=== PATIENT | male | born 1990 | race Two or more races ===

== ENCOUNTER 2019-08-28 08:41 | Emergency (ER) | payer BC, OTHER ==
[~2019-08-28] VITALS: Ht 170.2 cm; Wt 100.0 kg
[2019-08-28] MEDS ORDERED: HYDR-3281 PO (08:53)
[2019-08-28 09:05] VITALS: BP 145/83
[2019-08-28] MEDS ORDERED: KETOROLAC 30MG/ML VIAL IM ONE (09:15)
== END 2019-08-28 09:56 | disposition home or self-care (01) ==
LOC: ER 08:41
DX: M65.271 Calcific tendinitis, right ankle and foot (principal)
CPT/HCPCS: 73610; 96372; 99283; J1885

== ENCOUNTER 2021-05-14 08:47 | Emergency (ER) | payer BC, MEDICAID, OTHER ==
[~2021-05-14] VITALS: Ht 177.8 cm; Wt 104.0 kg
[~2021-05-14 08:47] MED LIST: HYDR-4346 PO
[2021-05-14 08:57] VITALS: BP 136/83
[2021-05-14] MEDS ORDERED: PREDNISONE 20MG TABLET PO ONE (09:15)
[2021-05-14] MEDS ORDERED: COLCHICINE 0.6MG TABLET PO ONE (09:15)
[2021-05-14] MEDS ORDERED: INDOMETHACIN 25MG CAPSULE PO ONE (09:15)
[2021-05-14] MEDS ORDERED: COLC0.6C3 MT ×2 (10:02→14:29)
[2021-05-14] MEDS ORDERED: INDO-13 MT ×2 (10:02→14:29)
[2021-05-14] MEDS ORDERED: P20 MT ×2 (10:02→14:29)
== END 2021-05-14 10:57 | disposition home or self-care (01) ==
LOC: ER 08:47
DX: M10.9 Gout, unspecified (principal); I10 Essential (primary) hypertension
CPT/HCPCS: 73630; 99283

== ENCOUNTER 2021-07-08 09:45 | Emergency (ER) | payer SELFPAY ==
[~2021-07-08] VITALS: Ht 167.6 cm; Wt 104.0 kg
[~2021-07-08 09:45] MED LIST changes: +COLC0.6C3 MT; +INDO-13 MT; +P20 MT
[2021-07-08] MEDS ORDERED: KETOROLAC 60MG/2ML VIAL IM ONE (10:30)
[2021-07-08] MEDS ORDERED: PREDNISONE 20MG TABLET PO ONE (12:15)
[2021-07-08] MEDS ORDERED: P20 MT (12:41)
[2021-07-08] MEDS ORDERED: NAPR-681 MT (12:41)
[2021-07-08 13:24] VITALS: BP 129/73
== END 2021-07-08 13:26 | disposition home or self-care (01) ==
LOC: ER 09:45
DX: M25.571 Pain in right ankle and joints of right foot (principal); M10.9 Gout, unspecified
CPT/HCPCS: 29515; 73610; 96372; 99283; J1885; J7512

== ENCOUNTER 2021-09-17 00:29 | Emergency (ER) | payer MEDICAID ==
[~2021-09-17] VITALS: Ht 170.2 cm; Wt 110.0 kg
[~2021-09-17 00:29] MED LIST changes: +NAPR-681 MT
[2021-09-17 01:28] VITALS: BP 139/89
[2021-09-17] MEDS ORDERED: KETOROLAC 60MG/2ML VIAL IM ONE (02:00)
[2021-09-17] MEDS ORDERED: PREDNISONE 20MG TABLET PO ONE (02:00)
[2021-09-17] MEDS ORDERED: NAPR-681 MT (03:08)
[2021-09-17] MEDS ORDERED: P20 MT (03:08)
== END 2021-09-17 03:37 | disposition home or self-care (01) ==
LOC: ER 00:51
DX: M79.674 Pain in right toe(s) (principal); M10.9 Gout, unspecified
CPT/HCPCS: 96372; 99283; J1885; J7512

== ENCOUNTER 2022-04-15 10:25 | Emergency (ER) | payer MEDICAID ==
[~2022-04-15] VITALS: Ht 170.2 cm; Wt 109.0 kg
[2022-04-15] MEDS ORDERED: KETOROLAC 15MG/ML VIAL IM ONE (13:15)
[2022-04-15] MEDS ORDERED: IBUP-2030 MT (13:51)
[2022-04-15 14:39] VITALS: BP 126/77
== END 2022-04-15 14:41 | disposition home or self-care (01) ==
LOC: ER 10:25
DX: M25.571 Pain in right ankle and joints of right foot (principal); M10.9 Gout, unspecified
CPT/HCPCS: 73610; 96372; 99283; J1885

== ENCOUNTER 2022-08-25 16:27 | Emergency (ER) | payer MEDICAID ==
[~2022-08-25] VITALS: Ht 170.2 cm; Wt 113.0 kg
[~2022-08-25 16:27] MED LIST changes: +IBUP-2030 MT
[2022-08-25 16:37] VITALS: BP 163/7
[2022-08-25] MEDS ORDERED: KETOROLAC 60MG/2ML VIAL IM ONE (16:45)
[2022-08-25] MEDS ORDERED: COLC0.6C3 MT (16:47)
[2022-08-25] MEDS ORDERED: INDO-13 MT (16:47)
== END 2022-08-25 17:00 | disposition home or self-care (01) ==
LOC: ER 16:27
DX: M10.9 Gout, unspecified (principal); Z79.899 Other long term (current) drug therapy; Z98.890 Other specified postprocedural states
CPT/HCPCS: 99283

== ENCOUNTER 2024-07-19 09:41 | Emergency (ER) | payer MEDICAID ==
[~2024-07-19] VITALS: Ht 167.6 cm; Wt 113.4 kg
[2024-07-19 09:42] VITALS: O2SAT 99
[2024-07-19 09:44] VITALS: TEMP 36.8; O2SAT 100
[2024-07-19 10:30] VITALS: BP 147/100; PULSE 75; RESP 14
[2024-07-19] MEDS: KETOROLAC 30MG/ML VIAL IM ONE (10:30)
[2024-07-19] MEDS: PREDNISONE 20MG TABLET PO ONE (10:30)
[2024-07-19] MEDS ORDERED: P20 MT (10:33)
[2024-07-19] MEDS ORDERED: INDO50CA98 MT (10:33)
== END 2024-07-19 11:07 | disposition home or self-care (01) ==
LOC: ER 09:50
DX: M10.9 Gout, unspecified (principal); Z79.1 Long term (current) use of non-steroidal anti-inflammatories (NSAID); Z79.899 Other long term (current) drug therapy
CPT/HCPCS: 96372; 99283; J7512; J1885; Z7610

== ENCOUNTER 2024-10-15 18:33 | Emergency (ER) | payer MEDICAID ==
[~2024-10-15] VITALS: Ht 167.6 cm; Wt 118.0 kg
[~2024-10-15 18:33] MED LIST changes: +AMOX1TAB16 MT; +AZIT500T8 MT; +HYDR-4009 MT; -IBUP-2030 MT; -INDO-13 MT; -NAPR-681 MT; -P20 MT
[2024-10-15 18:45] VITALS: O2SAT 96
[2024-10-15] MEDS ORDERED: BENZ200C52 MT (20:50)
[2024-10-15] MEDS ORDERED: HYDR-4001 MT (20:50)
[2024-10-15] MEDS: HYDROCODONE/ACETAMINOPHEN 10/325MG TABLET PO ONE (21:22)
[2024-10-15 21:23] VITALS: BP 128/84; PULSE 77; RESP 20; TEMP 36.7; O2SAT 100
== END 2024-10-15 21:53 | disposition home or self-care (01) ==
LOC: ER 18:33
DX: R07.81 Pleurodynia (principal); F10.90 Alcohol use, unspecified, uncomplicated; Z76.0 Encounter for issue of repeat prescription; Z79.899 Other long term (current) drug therapy; Z79.1 Long term (current) use of non-steroidal anti-inflammatories (NSAID)
CPT/HCPCS: 99283